=== PATIENT | male | born 1950 | race Caucasian/White ===

== ENCOUNTER 2025-06-03 04:39 | Emergency (ER) | payer SELFPAY ==
[2025-06-03] VITALS (7 sets, daily range): BP systolic 129–148; BP diastolic 84–123
--- NOTE | 2025-06-03 04:45 | ED.GENMED ---
History of Present Illness
General
Chief Complaint: CVA/TIA Symptoms
Source: spouse and ambulance crew
Exam Limitations: altered mental status
Time Seen by Provider: 06/03/25 04:40
Nursing documentation reviewed up to this point in time: agreed with
History of Present Illness
History of Present Illness:
This is a 74-year-old gentleman who resides at home with his significant other. Arrives via EMS, prehospital stroke alert. Patient apparently went to bed around 9 PM last night in his usual state of health. Sometime this morning woke up and
seemed confused, right sided weakness. Partner noted he was unable to speak, unable to answer her thus she immediately called 911.. Significant other admits she has hx of dementia but mostly for remembering dates, etc. She adamantly denies being
to this patient. She states they are close friends. He lost his house a number of years ago and moved in with her. He never , has no children.
Paramedics state that there were several medication bottles that were all . They do not know the names and did not bring them with them.
Significant other states that patient has not gone to the doctor in quite some time, takes no medicines on a daily basis.
There is no report of fall.
Prehospital blood sugar 155.
Patient presents via EMS, awake, nonverbal, complete muteness. Preferentially looking to the left. He will sporadically follow some simple commands. There is appears to be a dense right hemiparesis and dense right hemineglect.
If applicable-neuro sx onset
Date last time pt seen normal: 06/02/25
Time last time pt seen normal: 21:00
Past History
Past History
ED Past Medical History: Other (Unknown. According to his significant other he takes no medicines on a daily basis and has not sought primary care for quite some time.)
ED Past Surgical History: Other (Unknown if patient has ever had surgical procedures)
Social History
Tobacco: Smoker
Alcohol: Daily (1-2 beers daily)
Drug: None
Personal: Single
Living: with roommate
Employment: Retired
Family History
Family History: Unable to obtain
Phy Exam
Physical Exam
Physical Exam:
GENERAL: 74-year-old gentleman appears his stated age. He is awake, nonverbal. Gazing to the left.
EYE: pupils equal and reactive. anicteric. Eyes deviated up to the left.
NECK: Supple, nontender, no meningismus, no significant adenopathy.
ENT: posterior pharynx is clear, oral mucosa is moist. TM clear b/l, nares patent. Right facial droop.
CARDIAC: Regular rate and rhythm. no murmur.
LUNGS: Clear breath sounds bilaterally, no acute respiratory distress, no wheezes/rales/rhonchi
ABDOMEN: Soft, nondistended, without focal tenderness
NEUROLOGICAL: Awake and alert, completely mute, preferentially looking to the left, sporadically following a few simple commands. Dense right hemiparesis, right hemineglect. Initial NIH stroke scale of 23.
SKIN: Warm and dry, normal color, skin intact. No rash.
MUSCULOSKELETAL: No C/C/E. peripheral pulses are full and equal b/l. No palpable tenderness.
PSYCH: Intermittently mildly agitated.
Scores
NIH Stroke Score
Level of Consciousness: 0 - Alert
LOC Questions: 2-Neither correct
LOC Commands: 1-Performs one correctly
Best Horizontal Gaze: 1-Partial gaze palsy
Visual Abdullahi: 2=Full hemianopia
Facial Palsy: 2=Partial paralysis
Motor - Right Arm: 4=No movement
Motor - Left Arm: 0=No drift 10 seconds
Motor - Right Le-No movement
Motor - Left Le-No drift 5 seconds
Limb Ataxia: 2-Present in two limbs
Sensation: 0-Normal
Best Language: 3-Mute/global aphasia
Dysarthria: UN-Intubated, other (mute, nonverbal)
Extinction and Inattention: 2-Total jose inattention
NIH Total Score:: 23
Course
Orders/Labs/Results
Orders:
Orders
06/03/25 04:42
CT HEAD STROKE ALERT W/o Cont Urgent
Comment:
Reason For Exam: stroke alert
06/03/25 04:43
Electrocardiogram (*1) Urgent
Reason for Study: Other
Other Reason for Exam: Possible Stroke
CT BRAIN PERF STROKE ALERT Urgent
Comment:
Reason For Exam: R sided weakness, last normal [address] HEAD/NECK ANG STROKE ALERT Urgent
Comment:
Reason For Exam: R sided weakness, last normal 9 pm
Bedside Glucose- Treatment ONCE
Cardiac Monitoring- Treatment ONCE
Cardiac Monitoring- Treatment ONCE
EKG- Treatment ONCE
EKG- Treatment ONCE
IV Insert/Care/Rem.- Treatment PRN
Vital Signs As Directed
Frequency: Other
Weight As Directed
Frequency: Once
Comment: ZERO STRETCHER SCALE FOR ACCURATE WEIGHT
O2 Therapy [RESP] Urgent
Titrate/Wean O2 to maintain O2 sat greater than (%): 93
Special Instructions: MAINTAIN CONTINUOUS O2 SATS > OR = 93%
06/03/25 04:45
Complete Blood Count/With Diff Urgent
Comprehensive Metabolic Panel Urgent
PTT Urgent
Prothrombin Time Urgent
Troponin I Urgent
06/03/25 05:22
Tenecteplase [Tnkase] 24 mg Syringe [Syringe Non-Pump] 0 ml IV NOW
Provider explained risk/benefits to patient &/or caregiver?: Yes
Blood pressure: 147/97
06/03/25 Breakfast
NPO
Allow oral meds: No
Allow clear liquids: No
Abnormal Lab Results
06/03/25
04:45
WBC 19.1 H 10^3/uL
(4.8-10.8)
Abs Immat Gran (auto) 0.1 H 10^3/uL
(0-0.05)
Absolute Neuts (auto) 15.6 H 10^3/uL
(1.4-6.5)
Absolute Monos (auto) 1.5 H 10^3/uL
(0.1-0.6)
Neutrophils % 81.7 H %
(42.2-75.2)
Lymphocytes % 9.7 L %
(20.5-51.1)
PT 15.8 H Sec
(11.4-14.6)
Glucose 135 H mg/dl
(70-99)
Total Bilirubin 1.5 H mg/dl
(0.2-1.3)
Troponin I 0.117 H* ng/ml
06/03/25 04:45
06/03/25 04:45
Vital Signs
Initial and Last Documented VS:
Initial Vital Signs
Pulse Resp BP Pulse Ox
82 20 147/97 97
06/03/25 04:40 06/03/25 04:40 06/03/25 04:40 06/03/25 04:40
Last Documented Vital Signs
Temp Pulse Resp BP Pulse Ox
97.6 F 80 16 135/92 96
06/03/25 05:49 06/03/25 06:00 06/03/25 06:00 06/03/25 06:00 06/03/25 06:00
MDM/Problems Addressed
Differential Diagnosis Includes:
Concern for significant stroke, ischemic versus hemorrhagic, other consideration is brain mass. No history of trauma.
Prehospital Accu-Chek 155.
Patient urgently taken to CT for CT of the head, CTA head and neck and CT perfusion.
As this is a wake-up stroke, if no evidence of hemorrhage, if evidence of large vessel occlusion, must rely on CT perfusion to assess for potential brain viability. Assess for potential thrombolytics/thrombectomy candidacy.
MDM/Problems Addressed:
Acute change in mental status, right-sided weakness, mutism
Chronic conditions affecting care:
Patient has not sought health care in many years.
Takes no medicines on a daily basis.
Smokes cigarettes.
*Radiology
Radiology exam reviewed: radiology read reviewed
*Pulse Oximetry
Patient hypoxic: no
*EKG
Interpreted by ED Provider?: Yes
Interpretation: abnormal
Comparison EKG: no comparison EKG present
Rate: normal
Rhythm: a-fib and PVC's
Point Clear: normal axis
Interval: normal QT interval
QRS Pattern: normal QRS
Ischemia: no ischemia
*Charge Rn Interpretation
Rate: normal
Interpretation: abnormal
Rhythm: a-fib
*Critical Care Note
Total Time (30-74mins, 75-104mins- exclusive of procedures): 80
comment:
Critical care statement: A total of 80 minutes of critical care time was provided for this patient. This includes management of unstable vital signs, evaluation of the patient at bedside, reviewing the patient's pertinent medical records, discussion
with consultants, review of old EKGs and review of pertinent medical records. This time with separate from time utilized to perform the aforementioned documented procedures
Update Note
Update Note:
05:20
Telephone call from radiologist.
CTA shows large vessel occlusion involving the midportion of the left MCA. CT perfusion shows large territory of brain at risk corresponding with the left MCA vascular territory but no core.
Due to significant area of ischemia, no core lesion will give TNK and urgent call to neurology stroke team at [facility]. Patient is candidate for thrombectomy.
I have discussed these findings with his significant other who is at bedside. They are not . He has no children and was never . She is his closest next of kin.
We discussed potential risks of TNK including bleeding.
She is agreeable with plan of care.
ED Attending Note
-
Portions of this chart may have been created with voice recognition software.� Occasional wrong word or��sound alike� substitutions may have occurred due to the inherent limitations of voice recognition software.
Discharge Plan
Departure
Patient Disposition: Acute Care Hospital
Date of Disposition: 06/03/25
Time of Disposition: 05:30
Condition: Serious
Discharge Problem:
Acute ischemic left middle cerebral artery (MCA) stroke
Hospital Transfer
Other hospital: [facility]
I certify that the patient requires transfer: Yes
Discussed case with accepting physician: Javier
Reason for transfer: higher level of care and specialties available
Interventions
Interventions:
*Risk Screen - Suicide Last Done: 06/03/25 04:40
*General Assessment Last Done: 06/03/25 04:40
*ED COVID-19 Vaccine History Last Done: 06/03/25 05:27
*ED Influenza Vaccine History Last Done: 06/03/25 05:27
[facility] Fall Risk Assessment Tool Last Done: 06/03/25 05:25
ED- Pulmonary Assessment Last Done: 06/03/25 05:42
ED- Neurological Assessment Last Done: 06/03/25 05:21
ED- Cardiac Assessment Last Done: 06/03/25 05:24
ED Swallowing Screen Last Done: 06/03/25 05:35
Discharge Date and Time
Print Language: [place]
[2025-06-03 04:58] LABS: Hematocrit 45.8 % (39.0-52.0); Hemoglobin 16.2 g/dL (13.0-18.0); Mean Corp Hgb Conc. 35.4 g/dL (33.0-37.0); Mean Corpuscular Volume 82.1 fL (80.0-94.0); Nucleated Red Blood Cells % 0 % (-); Platelet Count 310 10^3/uL (130-400); Red Cell Dist. Width 13.1 % (11.5-14.5)
[2025-06-03 05:11] LABS: APTT 31.9 Sec (23.4-35.0); INR 1.29; PT 15.8 Sec (11.4-14.6)
[2025-06-03 05:20] LABS: ALT (SGPT) 22 U/L (0-50); AST (SGOT) 34 U/L (17-59); Albumin 4.2 g/dl (3.5-5.0); Alkaline Phosphatase 107 U/L (38-126); Blood Urea Nitrogen 13 mg/dl (9-20); Calcium 9.9 mg/dl (8.4-10.2); Carbon Dioxide 22 mmol/L (22-30); Chloride 105 mmol/L (98-107); Glucose 135 mg/dl (70-99); Potassium 4.4 mmol/L (3.5-5.1); Sodium 135 mmol/L (135-145); Total Protein 7.6 g/dl (6.3-8.2); eGFR > 60.00
[2025-06-03] MEDS: TNKASE 4.8 MG IV (05:28)
[2025-06-03 05:41] LABS: Troponin I 0.117 ng/ml
== END 2025-06-03 06:05 | disposition short-term general hospital (02) ==
LOC: EMR 04:39
PROVIDERS: EMERGENCY PHYSICIAN Emergency Medicine
DX: I63.512 Cerebral infarction due to unspecified occlusion or stenosis of left middle cerebral artery (principal); G81.91 Hemiplegia, unspecified affecting right dominant side; R47.1 Dysarthria and anarthria; R29.723 NIHSS score 23; I48.91 Unspecified atrial fibrillation; I49.3 Ventricular premature depolarization; F03.90 Unspecified dementia, unspecified severity, without behavioral disturbance, psychotic disturbance, mood disturbance, and anxiety; F17.210 Nicotine dependence, cigarettes, uncomplicated
CPT/HCPCS: 99291; 99292; 96374; 0042T; 70450; 70496; 70498; 80053; 84484; 85025; 85610; 85730; 93005; J3101; Q9967